=== PATIENT | male | born 1970 | race Caucasian/White ===

== ENCOUNTER 2021-12-18 14:38 | Emergency (ER) | payer BC ==
[2021-12-18] VITALS (11 sets, daily range): BP systolic 100–116; BP diastolic 70–77
[~2021-12-18] VITALS: Ht 182.9 cm; Wt 95.0 kg
[~2021-12-18 14:38] MED LIST: (None)3.5 GM OP; ASA LO-DOSE81 MG OR; COREG CR20 MG OR; ECOTRIN325 MG OR; GENTAMICIN SULF5 ML OP; LIPITOR20 MG OR; MULTI VITAMN PO; NO HOME MEDS
[2021-12-18 15:36] LABS: HEMATOCRIT 44.2 % (39.0-50.0); HEMOGLOBIN 14.8 g/dl (14.0-18.0); IMMATURE GRANULOCYTES 0.2 % (0.0-5.0); MEAN CELL VOLUME 88.6 fL CALC (80.0-100.0); MEAN CORPUSCULAR HGB 29.7 pG CALC (26.0-32.0); MEAN CORPUSCULAR HGB CONC 33.5 g/dL CAL (32.0-36.0); NEUT# 8.26 thou/uL (1.82-7.42); RED BLOOD COUNT 4.99 mill/uL (4.70-6.10); RED CELL DISTRI WIDTH 12.5 % (11.5-15.5)
[2021-12-18 15:51] LABS: ALBUMIN 3.9 g/dL (3.2-5.0); ALKALINE PHOSPHATASE 78 u/l (38-126); BILIRUBIN, TOTAL 1.1 mg/dL (0.0-1.4); BUN 18 mg/dL (9-20); BUN/CREATININE RATIO 17 (12-20 (CALC)); CARBON DIOXIDE 25 mmol/l (22-30); CHLORIDE 104 mmol/l (95-108); CREATININE 1.1 mg/dL (0.7-1.3); GFR > 60 ML/MIN (>=60 (CALC)); GFR FOR AFR.AMER. > 60 ML/MIN (>=60 (CALC)); LIPASE 46 u/l (23-300); SGOT/AST 23 u/l (17-59); SODIUM 136 mmol/l (137-146); TOTAL PROTEIN 6.9 g/dL (6.3-8.2)
[2021-12-18 15:54] LABS: ANION GAP 11 (6-22 (CALC)); POTASSIUM 3.6 mmol/l (3.5-5.1)
[2021-12-18] MEDS ORDERED: CIPROFLOXACN500 MG PO (16:32)
[2021-12-18] MEDS ORDERED: ZOFRAN4 MG/TAB PO (16:32)
[2021-12-18] MEDS ORDERED: METRONIDAZOLE500 MG PO (16:32)
[2021-12-18 16:33] LABS: URINE BILIRUBIN - DIPSTICK NEGATIVE (NEGATIVE); URINE BLOOD DIPSTICK NEGATIVE (NEGATIVE); URINE COLOR YELLOW; URINE GLUCOSE - DIPSTICK NEGATIVE (NEGATIVE); URINE KETONE NEGATIVE (NEGATIVE); URINE LEUK ESTERASE NEGATIVE (NEGATIVE); URINE PROTEIN - DIPSTICK NEGATIVE (NEG-TRACE); URINE UROBILINOGEN - DIPSTICK 0.2 E.U./dL (0.2)
[2021-12-18 16:34] LABS: URINE NITRITE - DIPSTICK NEGATIVE (Negative)
== END 2021-12-18 17:58 | disposition home or self-care (01) | DRG 392 ==
LOC: ED 14:38
PROVIDERS: Family Medicine
DX: K57.92 Diverticulitis of intestine, part unspecified, without perforation or abscess without bleeding (principal)
CPT/HCPCS: Q9967

== ENCOUNTER 2023-01-24 21:15 | Emergency (ER) | payer OTHER ==
[~2023-01-24] VITALS: Ht 182.9 cm; Wt 100.0 kg
[2023-01-24] VITALS (10 sets, daily range): BP systolic 136–159; BP diastolic 88–99
[~2023-01-24 21:15] MED LIST changes: +CIPROFLOXACN500 MG PO; +METRONIDAZOLE500 MG PO; +ZOFRAN4 MG/TAB PO
[2023-01-24] MEDS ORDERED: ADDERALL XR25 MG PO (21:41)
[2023-01-24] MEDS ORDERED: PROZAC40 MG PO (21:41)
[2023-01-24 22:14] LABS: BASO% 0.2 % (0-3); EOS% 0.8 % (0-8); HEMATOCRIT 46.4 % (39.0-50.0); HEMOGLOBIN 15.9 g/dl (14.0-18.0); IMMATURE GRANULOCYTES 0.1 % (0.0-5.0); LYMPH% 13.1 % (15-41); MEAN CELL VOLUME 86.9 fL CALC (80.0-100.0); MEAN CORPUSCULAR HGB 29.8 pG CALC (26.0-32.0); MEAN CORPUSCULAR HGB CONC 34.3 g/dL CAL (32.0-36.0); MONO% 10.1 % (2-13); NEUT# 10.74 thou/uL (1.82-7.42); NEUT% 75.7 % (42-76); RED BLOOD COUNT 5.34 mill/uL (4.70-6.10); RED CELL DISTRI WIDTH 12.2 % (11.5-15.5)
[2023-01-24 22:25] LABS: ALBUMIN 4.4 g/dL (3.2-5.0); ALKALINE PHOSPHATASE 88 u/l (38-126); ANION GAP 13 (6-22 (CALC)); BILIRUBIN, TOTAL 2.5 mg/dL (0.2-1.3); BUN 17 mg/dL (9-20); BUN/CREATININE RATIO 17 (12-20 (CALC)); CARBON DIOXIDE 27 mmol/l (22-30); CHLORIDE 100 mmol/l (95-108); GFR FOR AFR.AMER. > 60 ML/MIN (>=60 (CALC)); GFR OTHER RACES > 60 ML/MIN (>=60 (CALC)); LIPASE 24 u/l (23-300); POTASSIUM 4.3 mmol/l (3.5-5.1); SGOT/AST 23 u/l (17-59); SODIUM 135 mmol/l (137-146); TOTAL PROTEIN 7.2 g/dL (6.3-8.2)
[2023-01-25] VITALS (10 sets, daily range): BP systolic 118–142; BP diastolic 63–96
[2023-01-25] MEDS ORDERED: PERCOCET 10/31 COMBO PO (01:53)
[2023-01-25] MEDS ORDERED: AMOX/K CLAV875 M1 PO (01:53)
== END 2023-01-25 02:20 | disposition home or self-care (01) | DRG 392 ==
LOC: ED 21:15
PROVIDERS: Emergency Medicine
DX: K57.32 Diverticulitis of large intestine without perforation or abscess without bleeding (principal); Z87.442 Personal history of urinary calculi
CPT/HCPCS: Q9967

== ENCOUNTER 2023-01-30 11:05 | Observation (INO) | payer OTHER ==
[~2023-01-30] VITALS: Ht 182.9 cm; Wt 97.0 kg
[~2023-01-30 11:05] MED LIST changes: +ADDERALL XR25 MG PO; +AMOX/K CLAV875 M1 PO; +PERCOCET 10/31 COMBO PO; +PROZAC40 MG PO
--- NOTE | 2023-01-30 11:20 | NUR ---
PT ARRIVED TO MED SURG RM 264, DIRECT ADMIT FROM . PT ALERT AND OREINTED X3, ABLE TO MAKE NEEDS KNOWN. PT C/O ABD PAIN AT 5/10 ON PAIN SCALE AT THIS TIME, WILL MEDICATE WITH PRN MED WHEN ORDER ENTERED. LUNGS CLEAR THROUGHOUT; ABD SOFT WITH BS ACTIVE X 4. PT SKIN CLEAN AND INTACT. PT OREINTED TO AND BATHROOM FOR TOILETING NEEDS. IV #20 STARTED TO RAC, FLUSHES WELL WITH NO RESISTENCE; SITE CLEAN AND HEALTHY. PT ORIENTED TO CALL LIGHT, SAFETY MEASURES IN PLACE AT THIS TIME.
[2023-01-30 11:54] VITALS: BP 124/76
--- NOTE | 2023-01-30 12:00 | NUR ---
ORDER FOR TORADOL ENTERED AND GIVEN VIA IV. D5 1/2 NS @ 100 ML/HR STARTED TO IV IN RAC. [facility]
[2023-01-30 15:14] VITALS: BP 126/80
[2023-01-30 15:31] VITALS: BP 126/80
--- NOTE | 2023-01-30 16:00 | NUR ---
PT IN BED RESTING WITH HOB UP, PT HAS NO C/O PAIN AT THIS TIME. IV TO RAC INTACT WITH FLUIDS AT 125 ML/HR. PT HAS NO CHANGE IN STATUS AT THIS TIME. PT HAS CALL LIGHT WITHIN REACH.
[2023-01-30 18:26] VITALS: BP 144/92
[2023-01-30 19:31] VITALS: BP 144/92
--- NOTE | 2023-01-30 20:10 | NUR ---
BEDSIDE REPORT RECEIVED FROM OFF GOING NURSE. PATIENT IS AWAKE AND RESTING IN BED AT THIS TIME. DENIES PAIN OR DISCOMFORT. RESPIRATIONS EVEN AND UNLABORED ON ROOM AIR. CALL LIGHT WITHIN REACH.
--- NOTE | 2023-01-31 02:14 | NUR ---
PATIENT ASLEEP IN BED. RESPIRATIONS EVEN AND UNLABORED ON ROOM AIR. SAFETY MEASURES IN PLACE. CALL LIGHT WITHIN REACH.
[2023-01-31 04:02] VITALS: BP 135/75
[2023-01-31 05:31] LABS: BASO% 0.4 % (0-3); EOS% 2.6 % (0-8); HEMATOCRIT 42.9 % (39.0-50.0); HEMOGLOBIN 14.5 g/dl (14.0-18.0); IMMATURE GRANULOCYTES 0.3 % (0.0-5.0); LYMPH% 27.5 % (15-41); MEAN CORPUSCULAR HGB 29.4 pG CALC (26.0-32.0); MEAN CORPUSCULAR HGB CONC 33.8 g/dL CAL (32.0-36.0); MONO% 11.7 % (2-13); NEUT# 4.46 thou/uL (1.82-7.42); NEUT% 57.5 % (42-76); RED BLOOD COUNT 4.93 mill/uL (4.70-6.10); RED CELL DISTRI WIDTH 11.8 % (11.5-15.5)
[2023-01-31 05:49] LABS: ALBUMIN 3.6 g/dL (3.2-5.0); ALKALINE PHOSPHATASE 85 u/l (38-126); ANION GAP 11 (6-22 (CALC)); BUN 13 mg/dL (9-20); BUN/CREATININE RATIO 11 (12-20 (CALC)); CARBON DIOXIDE 27 mmol/l (22-30); CHLORIDE 104 mmol/l (95-108); CREATININE 1.2 mg/dL (0.7-1.3); GFR FOR AFR.AMER. > 60 ML/MIN (>=60 (CALC)); GFR OTHER RACES > 60 ML/MIN (>=60 (CALC)); SGOT/AST 18 u/l (17-59); SODIUM 138 mmol/l (137-146); TOTAL PROTEIN 6.3 g/dL (6.3-8.2)
--- NOTE | 2023-01-31 06:20 | NUR ---
PATIENT ASLEEP IN BED. RESPIRATIONS EVEN AND UNLABORED ON ROOM AIR. NO SIGNS OF DISTRESS NOTED AT THIS TIME. CALL LIGHT WITHIN REACH.
[2023-01-31 06:42] VITALS: BP 127/75
--- NOTE | 2023-01-31 07:01 | NUR ---
PT RESTING IN SEMI FOWLERS POSITION PT A/OX3 PT HEART NORM RESPIRATIONS ON ROOM AIR. IV SITE NOTED PT DENIES ADDITIONAL NEEDS OTHER THAN WATER NURSE AID PASSING WATER AT THE TIME. ALL SAFETY PRECAUTIONS IN PLACE WITH CALL LIGHT IN REACH.
[2023-01-31 07:53] VITALS: BP 127/75
--- NOTE | 2023-01-31 11:51 | NUR ---
PT RESTING IN BED PT DENIES ADDITIONAL NEEDS AT THE TIME.ALL SAFETY PRECAUTIONS IN PLACE WITH CALL LIGHT IN REACH.
[2023-01-31 15:05] VITALS: BP 141/81
[2023-01-31 15:59] VITALS: BP 141/81
--- NOTE | 2023-01-31 16:27 | NUR ---
PT ASKED WHY PATIENT WAS NOT HOOKED UP TO ABX EDUCATED PT ABX IS ONLY 30 MIN ABX. FLUIDS ARE CONTINUOUS. PT DENIES ADDITIONAL NEEDS AT TIME.ALL SAFETY PRECAUTIONS IN PLACE.
[2023-01-31 20:27] VITALS: BP 137/85
--- NOTE | 2023-01-31 20:42 | NUR ---
BEDSIDE REPORT RECEIVED FROM OFF GOING NURSE. PATIENT AWAKE IN ROOM AMBULATING INDEPENDENTLY WITH FAMILY AT BEDSIDE. DENIES PAIN OR DISCOMFORT. RESPIRATIIONS EVEN AND UNLABORED ON ROOM AIR. D51/2 NS RUNNING AT 125 ML/HR. NO CONCERNS VOICED AT THIS TIME. CALL LIGHT WITHIN REACH.
--- NOTE | 2023-01-31 23:37 | NUR ---
PATIENT RESITNG IN BED. DENIES PAIN OR DISCOMFORT. MEDICATED PER MD ORDER. CALL LIGHT WITHIN REACH.
--- NOTE | 2023-02-01 02:04 | NUR ---
PATIENT ASLEEP IN BED. IN NO APPARENT DISTRESS. CALL LIGHT WITHIN REACH.
[2023-02-01 04:12] VITALS: BP 118/74
--- NOTE | 2023-02-01 06:38 | NUR ---
PATIENT ASLEEP IN BED. NO SIGNS OF DISTRESS NOTED. CALL LIGHT WITHIN REACH.
--- NOTE | 2023-02-01 07:18 | NUR ---
PT RESTING IN HIGH FOWLERS POSITION. A/OX3 HEART RHYTHM NORM RESPIRATIONS ON ROOM AIR. IV SITE NOTED WITH FLUIDS INFUSING PT DENIES ADDITIONAL NEEDS AT THE TIME ALL SAFETY PRECAUTIONS IN PLACE WITH CALL LIGHT IN REACH.
[2023-02-01 07:19] VITALS: BP 138/84
[2023-02-01] MEDS ORDERED: AMOX/K CLAV875 M1 PO (09:30)
--- NOTE | 2023-02-01 10:31 | NUR ---
Discharge instructions given. Patient verbalizes understanding of same. Discharged in stable condition via AMBULATORY to Home with staff. All belongings sent with pt. IV REMOVED
== END 2023-02-01 11:30 | disposition home or self-care (01) | DRG 392 ==
LOC: MS2 11:05
PROVIDERS: ADMIT Surgery; ATTEND Surgery
DX: K57.32 Diverticulitis of large intestine without perforation or abscess without bleeding (principal); F17.220 Nicotine dependence, chewing tobacco, uncomplicated; Z87.442 Personal history of urinary calculi
CPT/HCPCS: G0378; Q9967

== ENCOUNTER 2023-02-20 08:16 | Day surgery (SDC) | payer OTHER ==
[~2023-02-20] VITALS: Ht 182.9 cm; Wt 95.3 kg
[2023-02-20] MEDS ORDERED: MESALAMINE RE (10:13)
[2023-02-20 10:56] VITALS: BP 139/92
== END 2023-02-20 11:18 | disposition home or self-care (01) | DRG 392 ==
LOC: ENDO 08:16 → ORM 09:15 → ENDO 11:18 → ORM 03-01 10:45
PROVIDERS: ATTEND Surgery
PROC: 0DBE8ZX Excision of Large Intestine, Via Natural or Artificial Opening Endoscopic, Diagnostic (ICD-10-PCS; principal; 2023-02-20)
DX: K57.30 Diverticulosis of large intestine without perforation or abscess without bleeding (principal); K52.9 Noninfective gastroenteritis and colitis, unspecified; K64.8 Other hemorrhoids